=== PATIENT | male | born 1985 | race Caucasian/White ===

== ENCOUNTER 2020-05-12 16:49 | Emergency (ER) | payer OTHER | END 2020-05-12 22:07 | disposition home or self-care (01) | LOC: FER 16:49 | DX: S66.108 Unspecified injury of flexor muscle, fascia and tendon of other finger at wrist and hand level (principal); S61.412A Laceration without foreign body of left hand, initial encounter; I10 Essential (primary) hypertension; W26.0XXA Contact with knife, initial encounter | CPT/HCPCS: 73130 ==